=== PATIENT | male | born 1955 | race Caucasian/White ===

== ENCOUNTER 2017-05-06 09:18 | Day surgery (SDC) | payer BC ==
[2017-05-06] MEDS: NS 1,000 ML IV (10:14)
[2017-05-06] MEDS ORDERED: PROPOFOL 200 MG/20 ML VIAL As Ordered ×2 (10:54)
[2017-05-06] MEDS ORDERED: LIDOCAINE 2% INJ 100 MG/5 ML SDV (FOR ANES.) As Ordered (10:54)
== END 2017-05-06 12:12 | disposition home or self-care (01) ==
LOC: M OPP 09:18
DX: Z12.11 Encounter for screening for malignant neoplasm of colon (principal); K57.30 Diverticulosis of large intestine without perforation or abscess without bleeding; D12.5 Benign neoplasm of sigmoid colon; D12.3 Benign neoplasm of transverse colon; Z86.010 Personal history of colon polyps; I10 Essential (primary) hypertension; E78.00 Pure hypercholesterolemia, unspecified; M19.049 Primary osteoarthritis, unspecified hand; Z79.899 Other long term (current) drug therapy; Z88.5 Allergy status to narcotic agent
CPT/HCPCS: 45385

== ENCOUNTER → 2018-02-16 | Outpatient (REF) | payer BC ==
[2018-02-18 08:14] LABS: LDL DIRECT 119 mg/dL (0-99)
== END ==
LOC: M LAB REF 15:51
DX: E78.5 Hyperlipidemia, unspecified (principal)

== ENCOUNTER → 2018-07-21 | Outpatient (CLI) | payer BC ==
[~2018-07-21] MED LIST: FENO48TA2; HYDR12.55; LOSA50TA88; TRIC145T22 PO
--- NOTE | 2018-07-21 14:36 | REP ---
Clinical: Chronic renal disease. Technique: Real time mccarty scale ultrasound examination using curved array transducer. Findings: Right kidney measures 11.6 x 6.5 x 6.0 cm and appears normal in reniform shape and echogenicity without hydronephrosis, cystic or renal mass lesion and no perinephric fluid collection. A 12 mm nonobstructing right renal calculus identified in the mid pole region. The left kidney measures 12.2 x 5.7 x 6.1 cm and appears relatively normal in reniform shape and echogenicity without hydronephrosis, nephrolithiasis, mass lesion or perinephric fluid collection. Simple peripelvic cyst measures 1.3 x 1.4 x 1.0 cm, mid pole cyst measures 2.4 x 1.6 x 2.5 cm, and lower pole cortical cyst measures 0.8 x 0.8 x 1.0 cm. The prostate gland is enlarged and measures 6.1 x 4.7 x 5.6 cm (84 ml) with mass effect on the otherwise normal appearing bladder. Impression: 1. Right kidney includes 12 mm nonobstructing calculus. 2. Left kidney includes three simple cysts as detailed above. 3. Enlarged prostate gland. Electronically Signed by Iraj Leyva MD 07/21/2018 02:28 P
== END ==
LOC: M RAD 13:15
PROVIDERS: ATTEND Internal Medicine Nephrology
DX: N18.3 Chronic kidney disease, stage 3 (moderate) (principal); I12.9 Hypertensive chronic kidney disease with stage 1 through stage 4 chronic kidney disease, or unspecified chronic kidney disease

== ENCOUNTER → 2019-01-28 | Outpatient (CLI) | payer BC, MEDICARE ==
[~2019-01-28] MED LIST changes: +FENO48TA13; -FENO48TA2
--- NOTE | 2019-01-29 10:48 | REP ---
REASON: History of renal calculi. COMPARISON: None. Calcifications are seen superimposed over each nephric silhouette. Chronic changes are seen involving the spine and hips. IMPRESSION: Bilateral renal calculi. Electronically Signed by Sonny Powers DO 01/29/2019 10:57 A
== END ==
LOC: M WUC 12:36
PROVIDERS: ATTEND Urology
DX: N40.1 Benign prostatic hyperplasia with lower urinary tract symptoms (principal); N20.0 Calculus of kidney

== ENCOUNTER → 2019-06-13 | Outpatient (REF) | payer BC, MEDICARE ==
[~2019-06-13] MED LIST changes: -FENO48TA13; +FENO48TA7
== END ==
LOC: M LAB REF 12:22
PROVIDERS: ATTEND Family Medicine
DX: N18.3 Chronic kidney disease, stage 3 (moderate) (principal)

== ENCOUNTER → 2019-12-14 | Outpatient (REF) | payer BC, MEDICARE | LOC: M LABDRWAD 12:54 → M LAB REF 12:54 | PROVIDERS: ATTEND Family Medicine | DX: N18.3 Chronic kidney disease, stage 3 (moderate) (principal); E78.5 Hyperlipidemia, unspecified; R97.20 Elevated prostate specific antigen [PSA] ==

== ENCOUNTER → 2020-01-30 | Outpatient (CLI) | payer BC, MEDICARE ==
[2020-01-31 23:08] LABS: PSA % FREE 20.2 % (.); PSA FREE 0.83 ng/mL; PSA TOTAL 4.1 ng/mL (0.0-4.0)
--- NOTE | 2020-02-02 09:05 | REP ---
ABDOMINAL X-RAYS: 01/30/20. CLINICAL: Renal calculi. TECHNIQUE: Two supine views of the abdomen and pelvis. FINDINGS: A 10mm calculus overlies the right kidney while two smaller calculi are suggested overlying the left kidney measuring up to 6mm. The bowel gas pattern is nonspecific. Skeletal structures demonstrate age related degenerative changes. IMPRESSION: Bilateral nephrolithiasis. MTDD
== END ==
LOC: M WUC 09:16
PROVIDERS: ATTEND Urology
DX: N40.1 Benign prostatic hyperplasia with lower urinary tract symptoms (principal); N20.0 Calculus of kidney

== ENCOUNTER → 2020-04-17 | Outpatient (REF) | payer BC, MEDICARE | LOC: M LAB REF 11:18 | PROVIDERS: ATTEND Family Medicine | DX: N18.30 Chronic kidney disease, stage 3 unspecified (principal) ==

== ENCOUNTER → 2020-09-03 | Outpatient (REF) | payer BC, MEDICARE | LOC: M LAB REF 12:07 | PROVIDERS: ATTEND Family Medicine | DX: M10.9 Gout, unspecified (principal) ==

== ENCOUNTER → 2020-12-30 | Outpatient (CLI) | payer BC, MEDICARE ==
--- NOTE | 2020-12-30 10:32 | REP ---
INDICATION: CALCULUS OF KIDNEY. COMPARISON: 01/30/2020 FINDINGS: Once again, calcifications are seen superimposed over each nephric silhouette status quo. No new calcifications seem to have developed. The organ silhouettes insofar as delineated are unchanged. The intestinal gas pattern is nonspecific. The osseous structures are unchanged. IMPRESSION: No significant change from the prior exam. <Electronically signed by Sonny Powers > 12/30/20 1020
[2020-12-31 21:07] LABS: PSA % FREE 20.5 % (.); PSA FREE 0.82 ng/mL
== END ==
LOC: M WUC 09:45
PROVIDERS: ATTEND Urology
DX: N40.1 Benign prostatic hyperplasia with lower urinary tract symptoms (principal); N20.0 Calculus of kidney

== ENCOUNTER → 2021-03-20 | Outpatient (REF) | payer BC, MEDICARE ==
[~2021-03-20] MED LIST changes: -FENO48TA7; +FENO48TA8; +LOSA50TA28; -LOSA50TA88
== END ==
LOC: M LAB REF 12:41
PROVIDERS: ATTEND Family Medicine
DX: M10.9 Gout, unspecified (principal)

== ENCOUNTER → 2021-07-23 | Outpatient (REF) | payer BC, MEDICARE | LOC: M LAB REF 12:37 | PROVIDERS: ATTEND Family Medicine | DX: R74.8 Abnormal levels of other serum enzymes (principal) ==

== ENCOUNTER → 2022-01-07 | Outpatient (CLI) | payer BC, MEDICARE | LOC: M WUC 08:50 | PROVIDERS: ATTEND Urology | DX: N20.0 Calculus of kidney (principal) ==

== ENCOUNTER → 2022-01-29 | Outpatient (CLI) | payer BC, MEDICARE ==
[~2022-01-29] MED LIST changes: +ISOVUE-370 76% 100ML VIAL As Ordered ONE
== END ==
LOC: M RAD 14:50
PROVIDERS: ATTEND Urology
DX: R31.21 Asymptomatic microscopic hematuria (principal); K76.0 Fatty (change of) liver, not elsewhere classified; N20.2 Calculus of kidney with calculus of ureter; N40.1 Benign prostatic hyperplasia with lower urinary tract symptoms
CPT/HCPCS: 74178; Q9967

== ENCOUNTER → 2022-06-08 | Outpatient (CLI) | payer BC, MEDICARE ==
[~2022-06-08] MED LIST changes: +ALLO100T PO; +AMLO1TAB24 PO; -ISOVUE-370 76% 100ML VIAL As Ordered ONE; +LOSA100T45 PO
== END ==
LOC: M LABSMTC 07:42
PROVIDERS: ATTEND Anesthesiology
DX: Z01.812 Encounter for preprocedural laboratory examination (principal); Z11.52 Encounter for screening for COVID-19

== ENCOUNTER 2022-06-11 07:19 | Day surgery (SDC) | payer BC, MEDICARE ==
[~2022-06-11] VITALS: Ht 180.3 cm; Wt 112.0 kg
[~2022-06-11 07:19] MED LIST changes: +NS 1,000 ML IV ONE
[2022-06-11] MEDS ORDERED: propofoL 200 MG/20 ML VIAL As Ordered ONE ×2 (09:10→09:20)
[2022-06-11] MEDS ORDERED: LIDOCAINE 2% 100MG/5ML SDV (FOR ANES.) As Ordered ONE (09:10)
[2022-06-11 10:00] VITALS: BP 115/62
== END 2022-06-11 10:09 | disposition home or self-care (01) ==
LOC: M OPP 07:19
PROVIDERS: ATTEND Surgery
DX: Z12.11 Encounter for screening for malignant neoplasm of colon (principal); Z86.010 Personal history of colon polyps; Z80.0 Family history of malignant neoplasm of digestive organs; D12.6 Benign neoplasm of colon, unspecified; K64.2 Third degree hemorrhoids; K57.30 Diverticulosis of large intestine without perforation or abscess without bleeding; I10 Essential (primary) hypertension; E78.00 Pure hypercholesterolemia, unspecified; Z79.01 Long term (current) use of anticoagulants; Z79.899 Other long term (current) drug therapy; Z88.5 Allergy status to narcotic agent; Z87.39 Personal history of other diseases of the musculoskeletal system and connective tissue

== ENCOUNTER 2022-12-12 07:33 | Emergency (ER) | payer BC, MEDICARE ==
[~2022-12-12] VITALS: Ht 177.8 cm; Wt 115.3 kg
[~2022-12-12 07:33] MED LIST changes: -LOSA100T45 PO; +LOSA100T46 PO; -NS 1,000 ML IV ONE
[2022-12-12] MEDS ORDERED: LIDOCAINE 2% 5ML JELLY UROJET TOP ONE (08:00)
[2022-12-12 08:28] LABS: HEMATOCRIT 45.5 % (42.0-52.0); HEMOGLOBIN 15.7 g/dl (13.5-17.5); MEAN CORPUSCULAR HEMOGLOBIN 30.5 pg (27.0-33.0); MEAN CORPUSCULAR HGB CONC 34.5 g/dl (32.0-36.5); MEAN CORPUSCULAR VOLUME 88.5 fl (80.0-96.0); PLATELET COUNT, AUTOMATED 188 10^3/uL (150-450); RED BLOOD COUNT 5.14 10^6/uL (4.30-6.10); WHITE BLOOD COUNT 9.1 10^3/uL (4.0-10.0)
[2022-12-12 08:58] LABS: CALCIUM LEVEL 9.9 MG/DL (8.3-10.6); CREATININE FOR GFR 1.35 MG/DL (0.70-1.30); GLOMERULAR FILTRATION RATE 55.8 (>49); POTASSIUM SERUM 4.4 MMOL/L (3.5-5.1)
[2022-12-12] MEDS ORDERED: FLOM0.4C39 PO (10:20)
[2022-12-12 10:39] VITALS: BP 133/85; TEMP 98.3; O2SAT 94
== END 2022-12-12 11:10 | disposition home or self-care (01) ==
LOC: M ED 07:33
DX: R33.9 Retention of urine, unspecified (principal); I10 Essential (primary) hypertension; M10.9 Gout, unspecified; Z87.442 Personal history of urinary calculi; Z88.6 Allergy status to analgesic agent; Z79.811 Long term (current) use of aromatase inhibitors; Z79.899 Other long term (current) drug therapy

== ENCOUNTER → 2023-01-21 | Outpatient (REF) | payer BC, MEDICARE ==
[~2023-01-21] MED LIST changes: +FLOM0.4C39 PO
== END ==
LOC: M WUC 10:15 → M LAB REF 10:15
PROVIDERS: ATTEND Urology
DX: R97.20 Elevated prostate specific antigen [PSA] (principal)

== ENCOUNTER → 2023-02-03 | Outpatient (REF) | payer BC, MEDICARE | LOC: M LAB REF 12:34 | PROVIDERS: ATTEND Family Medicine | DX: M10.9 Gout, unspecified (principal) ==

== ENCOUNTER → 2023-08-11 | Outpatient (REF) | payer MEDICARE, BC | LOC: M LAB REF 16:23 | PROVIDERS: ATTEND Family Medicine | DX: R74.01 Elevation of levels of liver transaminase levels (principal) ==

== ENCOUNTER → 2023-09-01 | Outpatient (CLI) | payer MEDICARE, BC | LOC: M WUC 08:08 | PROVIDERS: ATTEND Urology | DX: N20.2 Calculus of kidney with calculus of ureter (principal) ==

== ENCOUNTER → 2023-09-01 | Outpatient (CLI) | payer BC, MEDICARE | LOC: M WUC 08:05 | PROVIDERS: ATTEND Urology | DX: R97.20 Elevated prostate specific antigen [PSA] (principal); N20.2 Calculus of kidney with calculus of ureter ==

== ENCOUNTER → 2023-09-02 | Outpatient (CLI) | payer BC, MEDICARE, OTHER | LOC: M RAD 07:00 | PROVIDERS: ATTEND Family Medicine | DX: R74.01 Elevation of levels of liver transaminase levels (principal) ==

== ENCOUNTER → 2023-11-03 | Outpatient (REF) | payer BC, MEDICARE, OTHER | LOC: M LABWUC 09:27 | PROVIDERS: ATTEND Urology | DX: R97.20 Elevated prostate specific antigen [PSA] (principal) ==

== ENCOUNTER → 2024-03-02 | Outpatient (CLI) | payer BC, MEDICARE, OTHER | LOC: M WUC 08:02 | PROVIDERS: ATTEND Urology | DX: R97.20 Elevated prostate specific antigen [PSA] (principal) ==

== ENCOUNTER → 2024-08-25 | Outpatient (REF) | payer BC, MEDICARE, OTHER ==
[~2024-08-25] MED LIST changes: -FLOM0.4C39 PO; +TAMS-18 PO
== END ==
LOC: M LAB REF 13:33
PROVIDERS: ATTEND Family Medicine
DX: M10.9 Gout, unspecified (principal)

== ENCOUNTER → 2025-03-14 | Outpatient (CLI) | payer BC, MEDICARE, OTHER | LOC: M WUC 08:14 | PROVIDERS: ATTEND Urology | DX: R97.20 Elevated prostate specific antigen [PSA] (principal) ==